=== PATIENT | female | born 1995 | race Caucasian/White ===

== ENCOUNTER 2017-11-27 18:01 | Inpatient (IN) | END 2017-11-28 16:33 | disposition home or self-care (01) | DRG 781 ==

== ENCOUNTER 2017-12-02 16:14 | Emergency (ER) | END 2017-12-02 19:25 | disposition home or self-care (01) ==

== ENCOUNTER 2018-07-02 09:18 | Inpatient (IN) | END 2018-07-07 18:08 | disposition home or self-care (01) | DRG 788 ==

== ENCOUNTER 2019-03-29 13:32 | Emergency (ER) | payer OTHER ==
[~2019-03-29] VITALS: Ht 147.3 cm; Wt 72.6 kg
[~2019-03-29 13:32] MED LIST: ACET500C5 PO; CIPR500T4 PO; FAMO-96 PO; IBUP800T48 PO; METR500T PO
[2019-03-29 13:36] VITALS: BP 132/89; PULSE 103; RESP 17; Ht 147.3 cm; Wt 72.6 kg
[2019-03-29] MEDS ORDERED: IBUPROFEN 800 MG TAB PO ONE (14:30)
--- NOTE | 2019-03-29 14:33 | ERD ---
ER Documentation Chief Complaint Chief Complaint HEADACHE, NAUSEA, VOMITING HPI 23-year-old female remote history of hyperemesis gravidarum who presents with multiple complaints. Her first complaint is that she is having a bandlike throbbing headache that is gradual onset, generalized and mild. Patient notes social stressors recently. Patient also describes burning epigastric abdominal discomfort after eating spicy food now completely resolved. This occurred yesterday. Patient only has minimal symptoms currently. She did have one episode of nonbloody nonbilious emesis. ROS All systems reviewed and are negative except as per history of present illness. Medications Home Meds Active Scripts Ibuprofen* (Motrin*) 800 Mg Tab, 800 MG PO Q6H PRN for PAIN AND OR ELEVATED TEMP, #30 TAB Prov:SAEED SANTILLAN MD 03/29/19 Famotidine* (Pepcid*) 20 Mg Tablet, 20 MG PO BID PRN for reflux symptoms for 4 Days, TAB Prov:SAEED SANTILLAN MD 03/29/19 Ibuprofen* (Motrin*) 800 Mg Tab, 800 MG PO Q8, #60 TAB 0 Refills Prov:CADENCE THURMAN MD 07/06/18 Metronidazole* (Flagyl*) 500 Mg Tablet, 500 MG PO Q6, #20 TAB 0 Refills Prov:CADENCE THURMAN MD 07/06/18 Ciprofloxacin Hcl* (Ciprofloxacin Hcl*) 500 Mg Tablet, 500 MG PO BID@06,18, #10 TAB 0 Refills Prov:CADENCE THURMAN MD 07/06/18 Acetaminophen* (Tylophen*) 500 Mg Capsule, 1 CAP PO Q6H PRN for PAIN AND OR ELEVATED TEMP, #60 CAP 0 Refills Prov:CADENCE THURMAN MD 07/06/18 Allergies Allergies: Coded Allergies: No Known Allergy (Unverified , 03/29/19) PMhx/Soc History of Surgery: No Anesthesia Reaction: No Hx Neurological Disorder: No Hx Respiratory Disorders: No Hx Cardiac Disorders: No Hx Psychiatric Problems: No Hx Miscellaneous Medical Probl: No Hx Alcohol Use: No Hx Substance Use: No Hx Tobacco Use: No Smoking Status: Never smoker FmHx Family History: No diabetes Physical Exam Vitals Vital Signs Date Temp Pulse Resp B/P (MAP) Pulse Ox O2 O2 Flow FiO2 Time Delivery Rate 03/29/19 98.0 103 17 132/89 98 13:36 (103) Physical Exam General: Well developed, well nourished, no acute distress Head: Normocephalic, atraumatic. Eyes: Pupils equally reactive, EOM intact ENT: Moist mucous membranes Neck: Supple, no lymphadenopathy Respiratory: Lungs clear bilaterally, no distress Cardiovascular: RRR, no murmurs, rubs, or gallops Abdominal: Soft, non-tender, non-distended, no peritoneal signs : Deferred MSK: No edema, no unilateral swelling, 5/5 strength Neurologic: Alert and oriented, moving all extremities, normal speech, no focal weakness, no cerebellar signs Skin: No rash Psych: Normal mood Results 24 hrs Current Medications Medications Dose Sig/Shantell Start Time Status Last (Trade) Ordered Route PRN Stop Time Admin Dose Reason Admin Ibuprofen 800 mg ONCE ONCE 03/29/19 03/29/19 (Motrin) PO 14:30 14:21 03/29/19 14:31 Procedures/MDM The patient's headache is unlikely related to serious etiology. The patient does not exhibit any clinical signs or symptoms, and has no risk factors to suggest headache etiology such as subarachnoid hemorrhage, acute vertebral or carotid dissection, intracranial mass, epidural, subdural hematoma, dural venous sinus thrombosis, giant cell arteritis, or pseudotumor cerebri. Headache very consistent with tension headache Patient is describing dyspepsia. No signs or symptoms concerning for gallbladder disease. Benign examination. Negative hCG No indication for laboratory testing or diagnostic imaging. Reassurance provided. The patient is tolerating oral intake and otherwise well-appearing. The patient does not have an identifiable emergent medical condition that war rants inpatient hospitalization at this time. The patient is deemed safe for discharge with outpatient follow-up. We discussed follow up with the patient's primary care doctor within 24 to 48 hours as needed. We also discussed return to the emergency room for worsening symptoms or worsening condition. Outpatient referral: None required Discharge Medications: Motrin and Pepcid Departure Diagnosis: Primary Impression: Tension headache Additional Impression: Dyspepsia Condition: Stable Patient Instructions: Tension Headaches, Gerd (Adult) Referrals: COMM[facility]ITY CL[facility] YOU HAVE RECEIVED A MEDICAL SCREENING EXAM AND THE RESULTS INDICATE THAT YOU DO NOT HAVE A CONDITION THAT REQUIRES URGENT TREATMENT IN THE EMERGENCY DEPARTMENT. FURTHER EVALUATION AND TREATMENT OF YOUR CONDITION CAN WAIT UNTIL YOU ARE SEEN IN YOUR DOCTORS OFFICE WITHIN THE NEXT 1-2 DAYS. IT IS YOUR RESPONSIBILITY TO MAKE AN APPOINTMENT FOR FOLOW-UP CARE. IF YOU HAVE A PRIMARY DOCTOR --you should call your primary doctor and schedule an appointment IF YOU DO NOT HAVE A PRIMARY DOCTOR YOU CAN CALL OUR PHYSICIAN REFERRAL HOTLINE AT IF YOU CAN NOT AFFORD TO SEE A PHYSICIAN YOU CAN CHOSE FROM THE FOLLOWING [facility] [address] [facility] [address] [facility] [address] [facility] [address] [facility] [address] [facility]. [facility] [address] [facility]. [facility] YOU HAVE RECEIVED A MEDICAL SCREENING EXAM AND THE RESULTS INDICATE THAT YOU DO NOT HAVE A CONDITION THAT REQUIRES URGENT TREATMENT IN THE EMERGENCY DEPARTMENT. FURTHER EVALUATION AND TREATMENT OF YOUR CONDITION CAN WAIT UNTIL YOU ARE SEEN IN YOUR DOCTORS OFFICE WITHIN THE NEXT 1-2 DAYS. IT IS YOUR RESPONSIBILITY TO MAKE AN APPOINTMENT FOR FOLOW-UP CARE. IF YOU HAVE A PRIMARY DOCTOR --you should call your primary doctor and schedule and appointment IF YOU DO NOT HAVE A PRIMARY DOCTOR YOU CAN CALL OUR PHYSICIAN REFERRAL HOTLINE AT . IF YOU CAN NOT AFFORD TO SEE A PHYSICIAN YOU CAN CHOSE FROM THE FOLLOWING [facility]: [facility] [address] [place] [address] [facility] [address] [place] [address] [facility] [address] [place] [address] SAEED SANTILLAN MD Mar 29, 2019 14:33
== END 2019-03-29 14:43 | disposition home or self-care (01) ==
LOC: FTE 13:32
DX: G44.209 Tension-type headache, unspecified, not intractable (principal); R10.13 Epigastric pain
CPT/HCPCS: 81025; Z7610; 99282